=== PATIENT | female | born 1965 | race Caucasian/White ===

== ENCOUNTER 2024-03-03 13:21 | Observation (INO) | payer OTHER, SELFPAY ==
[2024-03-03] VITALS (11 sets, daily range): BP systolic 120–165; BP diastolic 66–78; PULSE 71–106; RESP 14–18; TEMP 36.7–37.1; O2SAT 92–97; BMI 23.3
[2024-03-03] MEDS: Ondansetron 4 MG/2 ML Vial IV ×2 (14:14→23:13)
[2024-03-03] MEDS: Morphine 4 MG/ML Syringe IV (14:14)
--- NOTE | 2024-03-03 14:15 | RAD_ITS ---
EXAM: XR ABDOMEN, 1 VIEW CLINICAL INDICATION: right kidney stone TECHNIQUE: Frontal supine view of the abdomen/pelvis. COMPARISON: No relevant prior studies available. FINDINGS: GASTROINTESTINAL TRACT: Prominent gaseous distention of the large bowel consistent with ileus. ORGANS: 12 mm calcification projects over the central portion of the right kidney. Question of additional 7 mm stone within lower pole of the right kidney. BONES/JOINTS: Prominent disc degeneration noted at the L3-4 level. RAD/Abdomen Single View (Portable) IMPRESSION: 1. Right nephrolithiasis. 2. Large bowel ileus. Electronically Signed: Jean Walsh MD at 15:02 EST ,
[2024-03-03 14:19] LABS: Absolute Lymphocyte Count 0.99 X10^3/uL (0.83-4.51); Absolute Neutrophil Count 6.7 X10^3/uL (2.0-7.7); Basophil# 0.04 X10^3/uL; Basophil% 0.5 % (0-1); Eosinophil# 0.06 X10^3/uL; Eosinophils% 0.7 % (0-5); Hematocrit 40.5 % (37-47); Hemoglobin 13.6 g/dL (12.0-15.0); Lymphocyte # 0.99 X10^3/ul (0.83-4.51); Lymphocyte % 11.7 % (19-41); Mean Corp Hgb Conc 33.6 g/dL (32-36); Mean Corpuscular Hgb 32.2 pg (27.0-32.0); Mean Corpuscular Volume 95.7 fL (81-99); Mean Platelet Vol. 11.6 fl (6.2-12.0); Monocyte# 0.66 X10^3/uL; Monocyte% 7.8 % (0-10); NRBC Flagged by Analyzer 0 % (0-5); Neutrophil # 6.65 X10^3/uL (2.7-7.7); Neutrophil % 78.8 % (47-70); Platelet Count 212 K/mm3 (150-450); RBC Distribution Width CV 12.9 % (11.6-14.6); RBC Distribution Width SD 45.6 fl (35.1-43.9); Red Blood Count 4.23 M/mm3 (4.2-5.4); White Blood Count 8.4 K/mm3 (4.4-11.0)
--- NOTE | 2024-03-03 14:28 | EDS_ITS ---
HPI History of Present Illness Chief Complaint: Flank Pain Informant: patient and family Narrative Narrative: Obstructive kidney stone. Patient started with right flank pain this past Friday pain in the abdomen with nausea and vomiting. Denies urinary symptoms. Initially seen at [facility] on Friday diagnosed with UTI placed on Keflex 4 times daily. She has had temp of 100. Waxing waning pain contact her PCP referred her to the ED yesterday to rule out kidney stone. She is seen at outside hospital in [place], diagnosed with a 9 mm UPJ stone with hydronephrosis. Family reported she was treated with Toradol Zofran. Reported urology was contacted locally here yesterday for follow-up. Pain has increased. Last dose of Toradol 10 AM. Denies any allergies. Denies any past medical history. She ate small bites of food at 11 AM. Today noted blood in her urine. Denies any history of obstructive kidney stones in the past, she states when she is being evaluated to be a kidney donor she was found to have nephrolithiasis. Prior similar symptoms: No PFSH PFSH Home Medications ?Medication ?Instructions ?Recorded ?Last Taken ?Type NK 03/03/24 Unknown History cephalexin 500 mg capsule 500 mg PO TID #15 caps 03/03/24 Unknown Rx docusate sodium 100 mg capsule 100 mg PO BID #20 caps 03/03/24 Unknown Rx (Colace) oxycodone 5 mg tablet 5 mg PO Q6H PRN pain 7 days #14 03/03/24 Unknown Rx tabs Allergy/AdvReac Type Severity Reaction Status Date / Time No Known Allergies Allergy Verified 03/03/24 13:26 Social History Smoking Status: Never smoker ROS ROS ED Constitutional Constitutional ED: Reports fever(s); Denies chills or sweats Eyes Eyes: Denies change in vision ENT ENT ED: Denies dysphagia or sore throat Cardiovascular Cardiovascular: Denies chest pain, leg edema, palpitations or racing heartbeat Respiratory/Chest Respiratory/Chest: Denies cough, dyspnea or dyspnea on exertion Gastrointestinal Gastrointestinal: Reports nausea; Denies abdominal pain, diarrhea or vomiting Genitourinary Genitourinary ED: Reports hematuria; Denies dysuria or urinary frequency Musculoskeletal Musculoskeletal: Reports back pain; Denies extremity pain or neck pain Integumentary Denies rash or wounds Neurologic Neurologic: Denies headache(s), paresthesias or weakness EXAM Physical Exam Const Vital Signs: 03/03/24 13:22 03/03/24 13:26 03/03/24 14:46 Temperature 98.2 F 98.2 F 98.2 F Temperature Source Oral Oral Pulse Rate 87 87 72 Respiratory Rate 18 18 18 Blood Pressure 165/78 H 165/78 H 132/66 H Blood Pressure Mean 107 107 88 Pulse Ox 97 97 96 Oxygen Delivery Method Room Air Room Air 03/03/24 15:02 Temperature 98.2 F Temperature Source Pulse Rate 72 Respiratory Rate 18 Blood Pressure 132/66 H Blood Pressure Mean Pulse Ox 96 Oxygen Delivery Method Positive well nourished and well developed Constitutional Narrative: Nontoxic General Appearance ED: well developed HEENT Reports moist mucous membranes normocephalic and atraumatic Eyes EOMs intact bilaterally and conjunctivae normal General Eye ED: Yes normal appearance of both eyes Neck no lymphadenopathy and supple General: Negative for tenderness Chest Wall Chest: Negative for tenderness Resp normal respiratory effort and normal air movement Effort and Inspection: symmetric chest movement; Negative for respiratory distress Cardio regular rate, regular rhythm and no murmurs Peripheral Pulses: pulses 2+ throughout GI normal to inspection, nondistended, normoactive bowel sounds and non-tender Palpation: Negative for guarding or rebound tenderness present Back/Spine no CVA tenderness and no thoracic nor lumbar tenderness Back/Spine Narrative: No rash. Extremity normal to inspection General Extremety ED: Negative for edema or tenderness General Extremity: Negative for edema Neuro oriented x3 and no sensory deficits noted Sensorium / Orientation: awake and alert Skin no rashes or lesions noted and no wounds MDM MDM MDM Narrative Medical decision making narrative: Interventions / MDM: Differential diagnosis: Obstructive uropathy, hematuria, acute renal insufficiency, ileus Diagnosis considered but do not suspect: N/A My EKG interpretation: N/A Imaging independently reviewed and interpreted by myself: KUB: bowel gas, calcification noted right renal pelvis region. Per radiology large bowel ileus. External documents reviewed: N/A Test considered but not ordered:N/A ED course: Patient CT imagings were reviewed from daughter's phone with report 9 mm UPJ stone that is obstructive. Laboratory studies ordered recheck urine. Morphine Zofran for symptom control. KUB. Will discuss with urology service. 1435: We did receive a call from urologist Dr. De La Fuente who was aware of the patient. Preparations being made to take her to the OR for stent placement. Her pain is much more controlled at this time. Labs white count 8.4 creatinine 1.84, on patient's phone her creatinine was 1.[address] De La Fuente did come to the ED, reviewed imagings discussed possible ileus. She is taken to the OR for ureteral stent. Per radiology read concerns for large bowel ileus. Re-evaluation: stable Disposition discussed with patient/family/significant other: Patient and family Case discussed with consulting clinician: Urology service This note was generated with [employer] dictation software. It may contain incorrect words, spelling, and punctuation that were not noted in checking the note before signing. Lab Data Attestation: I reviewed the patient's lab results. Labs: Laboratory Results - last 24 hr 03/03/24 13:33 WBC 8.4 RBC 4.23 Hgb 13.6 Hct 40.5 MCV 95.7 MCH 32.2 H MCHC 33.6 RDW Std Deviation 45.6 H RDW Coeff of Cassius 12.9 Plt Count 212 MPV 11.6 Immature Gran % (Auto) 0.500 Neut % (Auto) 78.8 H Lymph % (Auto) 11.7 L [place] % (Auto) 7.8 Eos % (Auto) 0.7 Baso % (Auto) 0.5 Absolute Neuts (auto) 6.7 Absolute Lymphs (auto) 0.99 Nucleated RBC % 0 Sodium 137 Potassium 3.3 L Chloride 102 Carbon Dioxide 26.0 Anion Gap 8 BUN 22 H Creatinine 1.84 H Estim Creat Clear Calc 25.72 Est GFR (MDRD) Af Amer 36 L Est GFR (MDRD) Non-Af 30 L BUN/Creatinine Ratio 12.0 Glucose 109 H Calcium 9.2 Radiography Diagnostic Testing: Clinical Impression(s) from Imaging Studies KUB X-Ray 03/03/24 14:15 IMPRESSION: 1. Right nephrolithiasis. 2. Large bowel ileus. Electronically Signed: Jean Walsh MD at 15:02 EST , Discharge Plan Dx/Rx/DC Orders Clinical Impression: Renal colic on right side, Obstructed, uropathy, Renal insufficiency, Ileus Disposition Disposition: Acute Care Hospital [facility] Discharge Date/Time: 03/03/24 15:00
[2024-03-03 14:32] LABS: Anion Gap 8 (5-15); BUN 22 mg/dL (7-18); Calcium,Total 9.2 mg/dL (8.5-10.1); Chloride 102 mmol/L (98-107); Creatinine, Serum 1.84 mg/dL (0.55-1.02); EST Glomerular Filtration Rate 30 mL/min (>60); Est Glom Filt Rate - Afr Amer 36 mL/min (>60); Estimated Creatinine Clearance 25.72 ml/min; Glucose 109 mg/dL (74-106); Potassium 3.3 mmol/L (3.5-5.1); Sodium Level 137 mmol/L (136-145)
--- NOTE | 2024-03-03 14:52 | PCM.HP.STD ---
HPI - General General Date of Service: 03/03/24 Chief Complaint: left kidney stone HPI Narrative BART PIERSON, is a 58 F who presents to ER with severe pain from left obstruction kidney stone plan to take to surgery now for a stent and admit for pain control PFSH Home Medications ?Medication ?Instructions ?Recorded ?Last Taken ?Type NK 03/03/24 Unknown History Allergy/AdvReac Type Severity Reaction Status Date / Time No Known Allergies Allergy Verified 03/03/24 13:26 Social History Smoking Status: Never smoker ROS Constitutional Constitutional: Denies chills, fever(s) or malaise Eyes Eyes: Denies blurry vision or change in vision ENT HEENT: Reports none Cardiovascular Cardiovascular: Denies chest pain or palpitations Respiratory/Chest Respiratory/Chest: Denies cough or shortness of breath with exertion Gastrointestinal Gastrointestinal: Denies abdominal pain, constipation or diarrhea Musculoskeletal Musculoskeletal: Denies back pain, joint stiffness or joint swelling Integumentary Integumentary: Denies dry skin, jaundice, lesions or rash Neurologic Neurologic: Denies confusion, syncope or weakness Psychiatric Psychiatric: Reports none; Denies anxiety or depression Endocrine Endocrinology: Denies excessive sweating, fatigue or flushing Hematologic/Lymphatic Hematologic/Lymphatic: Denies anemia, easy bleeding or easy bruising Vital Signs Vital Signs Vital Signs: 03/03/24 13:22 03/03/24 13:26 03/03/24 14:46 Temperature 98.2 F 98.2 F 98.2 F Temperature Source Oral Oral Pulse Rate 87 87 72 Respiratory Rate 18 18 18 Blood Pressure 165/78 H 165/78 H 132/66 H Blood Pressure Mean 107 107 88 Pulse Ox 97 97 96 Oxygen Delivery Method Room Air Room Air Weight Weight: 58.06 kg Body Mass Index (BMI) 23.3 Physical Exam Const alert and oriented x3 General Appearance: cooperative HEENT normocephalic and head/scalp atraumatic Eyes PERRL and EOMs intact bilaterally Neck supple, no JVD and no carotid bruits Resp normal respiratory effort, normal air movement and clear to auscultation bilaterally Cardio regular rate and no murmurs GI normal to inspection, nondistended, normoactive bowel sounds and soft to palpation Extremity normal capillary refill General Extremity: no tenderness to palpation of joints or extremities; Negative for edema Skin no rashes or lesions noted and no wounds General Skin Exam: no breakdown Neuro CN's II-XII intact bilaterally Psych affect normal Appearance: appropriate Results Medical Records Data Attestation: I reviewed the patient's medical records Lab / Micro Data Attestation: I reviewed the patient's lab results. 03/03/24 13:33 03/03/24 13:33 Labs: Laboratory Results - last 24 hr 03/03/24 13:33: WBC 8.4, RBC 4.23, Hgb 13.6, Hct 40.5, MCV 95.7, MCH 32.2 H, MCHC 33.6, RDW Std Deviation 45.6 H, RDW Coeff of Cassius 12.9, Plt Count 212, MPV 11.6, Immature Gran % (Auto) 0.500, Neut % (Auto) 78.8 H, Lymph % (Auto) 11.7 L, [place] % (Auto) 7.8, Eos % (Auto) 0.7, Baso % (Auto) 0.5, Absolute Neuts (auto) 6.7, Absolute Lymphs (auto) 0.99, Nucleated RBC % 0, Sodium 137, Potassium 3.3 L, Chloride 102, Carbon Dioxide 26.0, Anion Gap 8, BUN 22 H, Creatinine 1.84 H, Estim Creat Clear Calc 25.72, Est GFR (MDRD) Af Amer 36 L, Est GFR (MDRD) Non-Af 30 L, BUN/Creatinine Ratio 12.0, Glucose 109 H, Calcium 9.2 Assessment & Plan Assessment/Plan (1) Calculus of left kidney: PLAN: plan for left stent now admit .
--- NOTE | 2024-03-03 14:57 | PCM.DC ---
Discharge Instructions Diet Discharge Diet: No restrictions DC O2, CPAP, BIPAP needs Additional Home O2 Discharge instructions: No Dressing / Incision Discharge Activity: Return to Normal Activity and May Not Drive (while taking narcotic pain medications.) Dressing / Incision Call your doctor if you observe: Fever of 101 or Higher Follow Up Care Please Follow Up With: Ryan De La Fuente MD When: Call [phone] for an appointment Test Results: Test results from this visit will be discussed in further detail at your follow-up appointment, if applicable. Discharge Plan Admission Primary Reason for Your Visit: kidney stone Attending Provider: Ryan De La Fuente Primary Care Provider: Desmond Gould Instructions Print Language: Italian Discharge Orders/Prescriptions Prescriptions: New cephalexin 500 mg capsule 500 mg PO TID Qty: 15 0RF oxycodone 5 mg tablet 5 mg PO Q6H PRN (Reason: pain) 7 Days Qty: 14 0RF docusate sodium [Colace] 100 mg capsule 100 mg PO BID Qty: 20 0RF No Action NK Referrals / Follow Up: Desmond Gould MD [Primary Care Provider] - Ryan De La Fuente MD [Med Staff - Active Staff] - Disposition Disposition (needs filled in before D/C Order can be placed): Home, Self Care
--- NOTE | 2024-03-03 15:02 | PCM.PRE.AN2 ---
ASA Classification* ASA Classification ASA Classification: 2 and E Assessment & Plan Anesthesia* Anesthesia Assessment Anesthesia Assessment: Discussed sedation and/or anesthesia options, risks, benefits, and alternatives with patient/parents/legal guardian/POA. Questions invited. The patient/parents/legal guardian/POA seems to understand and agrees to proceed with anesthesia plan. Reviewed the physical assessment, medical history, allergy history and patient home medications list prior to surgery/procedure/anesthetic and documented any changes. Performed airway and anesthesia risk assessments. Anesthesia Type Anesthesia Type: MAC (Food 11 am) Anesthesia Focused Assessment* Temperature: 98.2 F Pulse Rate: 72 Blood Pressure: 132/66 Respiratory Rate: 18 Pulse Ox: 96 Airway Assessment Mouth opens: >3 cm Mallampati Score: II Focused Labs Anesthesia Preop lab: CBC WBC 8.4 K/mm3 (4.4-11.0) 03/03/24 13:33 RBC 4.23 M/mm3 (4.2-5.4) 03/03/24 13:33 Hgb 13.6 g/dL (12.0-15.0) 03/03/24 13:33 Hct 40.5 % (37-47) 03/03/24 13:33 Plt Count 212 K/mm3 (150-450) 03/03/24 13:33 CHEMISTRY Potassium 3.3 mmol/L (3.5-5.1) L 03/03/24 13:33 Sodium 137 mmol/L (136-145) 03/03/24 13:33 BUN 22 mg/dL (7-18) H 03/03/24 13:33 Creatinine 1.84 mg/dL (0.55-1.02) H 03/03/24 13:33 Glucose 109 mg/dL (74-106) H 03/03/24 13:33 COAG Pre-Assessment Diagnosis/Proposed Procedure Planned Operative Procedure(s): Cysto, Stent placement Anesthesia History Anesthesia History - senior clinical consultant: Anesthesia History - senior clinical consultant Hx Hospitalization Any Problems With Anesthesia Cholinesterase deficiency You/Your Family Experience fever (hyperthermia) with Relationship Recent Exposure to Contagious Disease Does patient have nerve stimulator Patient instructed to have device shut off --Does patient have Pacemaker or ICD? When Was Last Pacemaker Check QUESTION #4 FULL TEXT: You/Your Family Experience fever (hyperthermia) with Anesthesia Last Oral Intake Last Oral intake: Last Oral Intake NPO since Meds taken in AM with sips of water? Meds patient instructed to take am of surgery PONV PONV - senior clinical consultant: PONV - senior clinical consultant Female HX of Motion Sickness HX of N/V After Surgery Non-Smoker Duration of Surgery greater than 60 minutes Number of Risk Factors PONV Score Height & Weight Height & Weight: Anesthesia: Height & Weight Height 5 ft 2 in 03/03/24 13:22 Weight: 58.06 kg 03/03/24 13:22 Body Mass Index (BMI) 23.3 03/03/24 13:22 Respiratory Assessment Respiratory Assessment - senior clinical consultant: Respiratory Tract Infection Hx - senior clinical consultant Hx Respiratory Tract Infection STOP Sleep Apnea STOP Sleep Apnea - senior clinical consultant: STOP Sleep Apnea - senior clinical consultant Hx Hypertension Hx Sleep Apnea CPAP BIPAP Do you snore loudly (louder than talking or can be heard Do you often feel tired/ fatigued/ sleepy during daytime? Has anyone observed you stop breathing during sleep? STOP Results QUESTION #5 FULL TEXT : Do you snore loudly (louder than talking or can be heard through closed doors)? 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 Specify any problems Hx of Preganancy in last 3 Months Nurse Filling Out Transfusion & Questions: Date: Time: Patient unable to answer at this time (ie. confused, unrespo /Reproduction History /Reproductive History - senior clinical consultant: /Reproductive Hx- senior clinical consultant Hx Now Gestational Age (in weeks): EDC: Hx Hx Para Hx Section SAB Active Medications Active Medications: Current Medications Generic Name Dose Route Start Last Admin Trade Name Freq PRN Reason Stop Dose Admin Acetaminophen 650 mg 03/03/24 14:57 Acetaminophen 325 Mg Tablet PO Q6H PRN PRN Pain Score 1-10 Al Hydroxide/Mg Hydroxide 30 ml 03/03/24 15:00 Mag Hydrox/Al Hydrox/Simeth 30 Ml Udc PO DAILY CARLOS Docusate Sodium 200 mg 03/03/24 15:00 Docusate Sodium 100 Mg Capsule PO BID CARLOS Cefazolin Sodium 1 gm in 50 mls @ 150 mls/hr 03/03/24 15:00 IV 03/03/24 22:19 Q8 CARLOS Ketorolac Tromethamine 15 mg 03/03/24 14:57 Ketorolac 15 Mg/Ml Vial IV 03/05/24 14:57 Q6H PRN PRN Pain Score 1-10 Metoclopramide HCl 10 mg 03/03/24 14:57 Metoclopramide 10 Mg/2 Ml Vial IV Q8H PRN PRN NAUSEA/VOMITING Ondansetron HCl 4 mg 03/03/24 14:57 Ondansetron 4 Mg/2 Ml Vial IV Q8H PRN NAUSEA/VOMITING Oxycodone HCl 5 - 10 mg 03/03/24 14:57 Oxycodone 5 Mg Tablet PO Q6H PRN PRN Pain Score 4-10 PFSH Home Medications ?Medication ?Instructions ?Recorded ?Last Taken ?Type NK 03/03/24 Unknown History cephalexin 500 mg capsule 500 mg PO TID #15 caps 03/03/24 Unknown Rx docusate sodium 100 mg capsule 100 mg PO BID #20 caps 03/03/24 Unknown Rx (Colace) oxycodone 5 mg tablet 5 mg PO Q6H PRN pain 7 days #14 03/03/24 Unknown Rx tabs Allergy/AdvReac Type Severity Reaction Status Date / Time No Known Allergies Allergy Verified 03/03/24 13:26 Social History Smoking Status: Never smoker Review of Systems (Anesthesia) ROS Narrative System reviewed and no additional complaints, except as documented.
[2024-03-03] MEDS: Cefazolin 2 GM in Syringe IV (15:12)
[2024-03-03] MEDS: Lidocaine Jelly 2% 20 ML Syringe (URO-JET) 1 APPLIC (15:22)
--- NOTE | 2024-03-03 15:31 | OP.PCM_ITS ---
Operative Report (Standard) Operative Information Surgery/Procedure Performed: Cystoscopy retrograde and right stent Surgeon: Ryan De La Fuente Date of Procedure: 03/03/24 Procedure Start Time: 15:22 Procedure Stop Time: 15:31 Pre-Operative Diagnosis: Obstructing right ureteral calculus Post-Operative Diagnosis: The same Select all DRAINS/GRAFTS/IMPLANTS that apply: Drains Drain details: Right stent 6 x 26 Type of Anesthesia: General Estimated Blood Loss: None Specimen collected: No Description of surgery: Patient was taken back to the operating room after smooth induction of a MAC local she was placed in dorsolithotomy position. The urethrovaginal area prepped draped in usual sterile fashion within the bladder with a 21 [place] rigid cystourethroscope used a wire and advanced a wire up the ureter could see a stone that was in the proximal ureter and then I was able to go wire past the stone and then I try to get a Pollick catheter passed a stone was really difficult I backed out the Pollick catheter and then I advanced a wire further up and then coiled in the kidney and then over the wire advanced a stent it was a 6 [place] by 26 cm stent fortunately was able to get the stent past the stone and then once a stone was then passed then I get the stent in stent coil in the kidney bladder good position patient bladder was drained anesthetic was reversed and she be admitted for observation overnight. Surgical Findings: Stone in the proximal right ureter causing obstruction Director Of Sustainability Programs residential designer: No Complications Complications: No Admit VTE Documentation VTE Present on Admission: No VTE Mechan Device Prophylaxis: SCD's VTE Pharm Prophylaxis ordered?: No
--- NOTE | 2024-03-03 15:40 | PCM.POST.ANE ---
Anesthesia: Postop Eval I Current Vital Signs Temperature: 98.1 F Pulse Rate: 106 Blood Pressure: 124/66 Respiratory Rate: 16 Pulse Ox: 93 Oxygen Delivery Method: Room Air Assessment Airway patent: Yes Spontaneous unlabored respirations: Yes Mental status: Awake and Calm nausea: No Vomiting: No Anesthesia Complication: No Fluid Hydration Crystalloid volume administer (ml): 10 Total IV fluid infused: 10 Progress Note Anesthesia document: Postop Eval 1 completed: Yes
[2024-03-03] MEDS: Bisacodyl 5 MG Tablet 10 MG PO (16:41)
[2024-03-03] MEDS: Mag Hydrox/Al Hydrox/Simeth 30 ML UDC PO (16:41)
[2024-03-03] MEDS: Docusate Sodium 100 MG Capsule 200 MG PO (16:41)
--- NOTE | 2024-03-03 16:54 | POSTOPAN2_ITS ---
Anesthesia Postop Eval I Sum Postop Eval Completion status Anesthesia document: Postop Eval 1 completed: Yes Anesthesia Postop Eval I Summary Anesthesia Postop Eval I Summary: Anesthesia Postop Eval I: Assessment Summary Airway patent Yes 03/03/24 15:41 OIL WELL PERFORATOR OPERATOR.[email or web address] Spontaneous unlabored Yes 03/03/24 15:41 OIL WELL PERFORATOR OPERATOR.[email or web address] respirations Mental status Awake,Calm 03/03/24 15:41 OIL WELL PERFORATOR OPERATOR.[email or web address] nausea No 03/03/24 15:41 OIL WELL PERFORATOR OPERATOR.GDOTT Vomiting No 03/03/24 15:41 OIL WELL PERFORATOR OPERATOR.GDOTT Anesthesia Postop Eval I: Fluid Summary Crystalloid volume administer 10 03/03/24 15:41 OIL WELL PERFORATOR OPERATOR.GDOTT (ml) Colloids volume administered ( ml) Blood Product volume administered (ml) Total IV fluid infused 10 03/03/24 15:41 OIL WELL PERFORATOR OPERATOR.GDOTT Anesthesia Postop Eval I: Summary Notes Anesthesia Complication No 03/03/24 15:41 OIL WELL PERFORATOR OPERATOR.GDOTT Anesthesia Complication Comment: Post-operative progress note Anesthesia: Postop Eval II Evaluation Mental status: Awake Pain Level: 2 nausea: No Vomiting: No
--- NOTE | 2024-03-03 16:54 | PCM.POSTANE2 ---
Anesthesia Postop Eval I Sum Postop Eval Completion status Anesthesia document: Postop Eval 1 completed: Yes Anesthesia Postop Eval I Summary Anesthesia Postop Eval I Summary: Anesthesia Postop Eval I: Assessment Summary Airway patent Yes 03/03/24 15:41 INSULATION BOARD CALENDER OPERATOR.[email or web address] Spontaneous unlabored Yes 03/03/24 15:41 INSULATION BOARD CALENDER OPERATOR.GDOTT respirations Mental status Awake,Calm 03/03/24 15:41 INSULATION BOARD CALENDER OPERATOR.GDOTT nausea No 03/03/24 15:41 INSULATION BOARD CALENDER OPERATOR.GDOTT Vomiting No 03/03/24 15:41 INSULATION BOARD CALENDER OPERATOR.GDOTT Anesthesia Postop Eval I: Fluid Summary Crystalloid volume administer 10 03/03/24 15:41 INSULATION BOARD CALENDER OPERATOR.GDOTT (ml) Colloids volume administered ( ml) Blood Product volume administered (ml) Total IV fluid infused 10 03/03/24 15:41 INSULATION BOARD CALENDER OPERATOR.GDOTT Anesthesia Postop Eval I: Summary Notes Anesthesia Complication No 03/03/24 15:41 INSULATION BOARD CALENDER OPERATOR.GDOTT Anesthesia Complication Comment: Post-operative progress note Anesthesia: Postop Eval II Evaluation Mental status: Awake Pain Level: 2 nausea: No Vomiting: No
[2024-03-03] MEDS: Ketorolac 15 MG/ML Vial IV (21:47)
[2024-03-03] MEDS: Acetaminophen 325 MG Tablet 650 MG PO (23:09)
[2024-03-03] MEDS: Cefazolin 1 GM/50 ML BAG IV (23:15)
[2024-03-04 04:07] VITALS: BP 141/71; PULSE 86; RESP 16; TEMP 36.8; O2SAT 96
[2024-03-04] MEDS: Ketorolac 15 MG/ML Vial IV ×2 (04:10→21:05)
[2024-03-04 04:28] LABS: Mucous, Urine 0 SEEN /hpf (<or=2+)
[2024-03-04 04:29] LABS: Color, Urine Amber (Yellow); Glucose, Dipstick Normal (Normal); Ketone-Dipstick 50 mg/dl (Negative); Leukocyte Esterase-Dipstick 500 /ul (Negative); Nitrite-Dipstick Negative (Negative); Occult Blood-Urine 250 /ul (Negative); Protein-Dipstick 100 mg/dl (Negative); Specific Gravity, Urine 1.025 (1.002-1.030); Urine Bilirubin Dipstick Negative (Negative); Urine Clarity Sl. Cloudy (Clear); Urine Urobilinogen Normal (Normal)
[2024-03-04 04:37] LABS: Bacteria 1+ /hpf (None Seen); Red Blood Cells-Urine 25-50 SEEN /hpf (0-5); Squamous Epithelial Cells - UA 5-10 SEEN /hpf (5-10); White Blood Cells 25-50 SEEN /hpf (0-5)
[2024-03-04 04:38] LABS: Amorphous Sediment 4+
[2024-03-04] MEDS: Cefazolin 1 GM/50 ML BAG IV ×2 (06:17→18:20)
[2024-03-04] MEDS: Acetaminophen 325 MG Tablet 650 MG PO (06:24)
[2024-03-04] MEDS: Ondansetron 4 MG/2 ML Vial IV ×2 (06:52→14:40)
--- NOTE | 2024-03-04 07:50 | PN.URO_ITS ---
Subjective Subjective Status post stent on the right side for obstructing stone, will give her suppository this morning to help her move her bowels she has not had a bowel movement still has a lot of gas distention in the abdomen. She can go home later this morning. No fevers no chills no signs of infection she was given instructions to go home with some antibiotics stool softeners and pain medicine as needed. Objective Data Objective Data Vital Signs: Vital Signs Temp Pulse Resp BP Pulse Ox O2 Del Method 98.3 F 86 16 141/71 H 96 Room Air 03/04/24 04:07 03/04/24 04:07 03/04/24 04:07 03/04/24 04:07 03/04/24 04:07 03/04/24 04:07 Oxygen Delivery Method Room Air Weight: 58.06 kg Body Mass Index (BMI) 23.3 Intake & Output: Intake and Output for Last 24 Hours 03/02/24 03/03/24 03/04/24 23:59 23:59 23:59 Intake Total 690 / 690 450 / 450 Balance 690 / 690 450 / 450 Lab / Micro Data 03/03/24 13:33 03/03/24 13:33 Labs: Laboratory Results - last 24 hr 03/03/24 13:33: WBC 8.4, RBC 4.23, Hgb 13.6, Hct 40.5, MCV 95.7, MCH 32.2 H, MCHC 33.6, RDW Std Deviation 45.6 H, RDW Coeff of Cassius 12.9, Plt Count 212, MPV 11.6, Immature Gran % (Auto) 0.500, Neut % (Auto) 78.8 H, Lymph % (Auto) 11.7 L, [place] % (Auto) 7.8, Eos % (Auto) 0.7, Baso % (Auto) 0.5, Absolute Neuts (auto) 6.7, Absolute Lymphs (auto) 0.99, Nucleated RBC % 0, Sodium 137, Potassium 3.3 L , Chloride 102, Carbon Dioxide 26.0, Anion Gap 8, BUN 22 H, Creatinine 1.84 H, Estim Creat Clear Calc 25.72, Est GFR (MDRD) Af Amer 36 L, Est GFR (MDRD) Non-Af 30 L, BUN/Creatinine Ratio 12.0, Glucose 109 H, Calcium 9.2 03/04/24 04:20: Urine Color [place], Urine Clarity Sl. Cloudy, Urine pH 5.0, Ur Specific [place] 1.025, Urine Protein 100 H, Urine Glucose (UA) Normal, Urine Ketones 50 H, Urine Occult Blood 250 H, Urine Nitrite Negative, Urine Bilirubin Negative, Urine Urobilinogen Normal, Ur Leukocyte Esterase 500 H, Urine RBC 25- 50 SEEN, Urine WBC 25-50 SEEN, Ur Squamous Epith Cells 5-10 SEEN, Amorphous Sediment 4+, Urine Bacteria 1+, Urine Mucus 0 SEEN Radiography Diagnostic Testing: Radiology Impression KUB X-Ray 03/03/24 14:15 IMPRESSION: 1. Right nephrolithiasis. 2. Large bowel ileus. Electronically Signed: Jean Walsh MD at 15:02 EST ,
[2024-03-04 07:55] VITALS: BP 140/71; PULSE 70; RESP 18; TEMP 36.9; O2SAT 96
[2024-03-04] MEDS: Mag Hydrox/Al Hydrox/Simeth 30 ML UDC PO (07:58)
[2024-03-04] MEDS: Docusate Sodium 100 MG Capsule 200 MG PO ×2 (07:59→20:57)
[2024-03-04] MEDS: Bisacodyl 10 MG Suppository RC (08:10)
[2024-03-04 11:29] VITALS: BP 145/75; PULSE 72; RESP 16; TEMP 36.9; O2SAT 94
[2024-03-04 11:33] VITALS: BP 145/75; PULSE 73; RESP 16; TEMP 36.9; O2SAT 97
[2024-03-04 14:28] VITALS: BP 148/77; PULSE 77; RESP 18; TEMP 36.7; O2SAT 95
[2024-03-04] MEDS: 0.9% Saline Lock 10 ML Syringe IV ×2 (14:40→18:20)
[2024-03-04 17:06] LABS: Bedside Glucose 128 mg/dL (74-106)
[2024-03-04 17:18] LABS: Hematocrit 38.8 % (37-47); Hemoglobin 13.2 g/dL (12.0-15.0); Mean Corpuscular Hgb 31.7 pg (27.0-32.0); Mean Corpuscular Volume 93.3 fL (81-99); Mean Platelet Vol. 11.3 fl (6.2-12.0); Platelet Count 234 K/mm3 (150-450); RBC Distribution Width CV 12.8 % (11.6-14.6); RBC Distribution Width SD 43.9 fl (35.1-43.9); Red Blood Count 4.16 M/mm3 (4.2-5.4); White Blood Count 7.6 K/mm3 (4.4-11.0)
[2024-03-04 17:31] LABS: Anion Gap 7 (5-15); BUN 14 mg/dL (7-18); BUN/Creat Ratio 16.6 RATIO (10-20); Calcium,Total 8.9 mg/dL (8.5-10.1); Chloride 101 mmol/L (98-107); Creatinine, Serum 0.84 mg/dL (0.55-1.02); EST Glomerular Filtration Rate 73 mL/min (>60); Est Glom Filt Rate - Afr Amer 88 mL/min (>60); Estimated Creatinine Clearance 56.33 ml/min; Glucose 129 mg/dL (74-106); Potassium 3.6 mmol/L (3.5-5.1); Sodium Level 136 mmol/L (136-145)
[2024-03-04 22:52] VITALS: BP 127/72; PULSE 87; RESP 16; TEMP 37; O2SAT 96
[2024-03-05] MEDS: Cefazolin 1 GM/50 ML BAG IV (05:03)
[2024-03-05 05:05] VITALS: BP 129/68; PULSE 72; RESP 16; TEMP 36.8; O2SAT 94
--- NOTE | 2024-03-05 07:36 | PCM.PN.GU ---
Subjective Subjective pt is feeling much better this am. bowels have moved cm diet. abd soft and benign. Objective Data Objective Data Vital Signs: Vital Signs Temp Pulse Resp BP Pulse Ox O2 Del Method 98.3 F 72 16 129/68 H 94 Room Air 03/05/24 05:05 03/05/24 05:05 03/05/24 05:05 03/05/24 05:05 03/05/24 05:05 03/05/24 05:08 Oxygen Delivery Method Room Air Weight: 58.06 kg Body Mass Index (BMI) 23.3 Intake & Output: Intake and Output for Last 24 Hours 03/03/24 03/04/24 03/05/24 23:59 23:59 23:59 Intake Total 690 / 690 1200 / 1200 50 / 50 Output Total 700 / 700 Balance 690 / 690 500 / 500 50 / 50 Lab / Micro Data 03/04/24 17:10 03/04/24 17:10 Labs: Laboratory Results - last 24 hr 03/04/24 15:40: POC Glucose 128 H 03/04/24 17:10: WBC 7.6, RBC 4.16 L, Hgb 13.2, Hct 38.8, MCV 93.3, MCH 31.7, MCHC 34.0, RDW Std Deviation 43.9, RDW Coeff of Cassius 12.8, Plt Count 234, MPV 11.3, Sodium 136, Potassium 3.6, Chloride 101, Carbon Dioxide 28.0, Anion Gap 7, BUN 14, Creatinine 0.84, Estim Creat Clear Calc 56.33, Est GFR (MDRD) Af Amer 88, Est GFR (MDRD) Non-Af 73, BUN/Creatinine Ratio 16.6, Glucose 129 H, Calcium 8.9
[2024-03-05 07:56] LABS: Hematocrit 37.2 % (37-47); Mean Corp Hgb Conc 32.3 g/dL (32-36); Mean Corpuscular Hgb 30.8 pg (27.0-32.0); Mean Corpuscular Volume 95.4 fL (81-99); Mean Platelet Vol. 11.5 fl (6.2-12.0); Platelet Count 234 K/mm3 (150-450)
[2024-03-05 08:49] VITALS: BP 137/75; PULSE 90; RESP 16; TEMP 36.6; O2SAT 95
[2024-03-05 09:04] LABS: Anion Gap 6 (5-15); BUN 13 mg/dL (7-18); BUN/Creat Ratio 15.1 RATIO (10-20); Chloride 103 mmol/L (98-107); Creatinine, Serum 0.86 mg/dL (0.55-1.02); EST Glomerular Filtration Rate 71 mL/min (>60); Est Glom Filt Rate - Afr Amer 86 mL/min (>60); Estimated Creatinine Clearance 55.02 ml/min; Glucose 91 mg/dL (74-106); Potassium 3.6 mmol/L (3.5-5.1); Sodium Level 138 mmol/L (136-145)
== END 2024-03-05 09:47 | disposition home or self-care (01) ==
LOC: ED 14:22 → SDC 14:46 → ACINP 14:47 → SDC 15:38 → MS3 15:38
PROVIDERS: Admitting Provider Urology; Emergency Provider Emergency Medicine; PCP Family Medicine; Visit Provider Urology
PROC: (CPT 52332; principal; 2024-03-03 17:15)
DX: N13.2 Hydronephrosis with renal and ureteral calculous obstruction (principal); K56.7 Ileus, unspecified
CPT/HCPCS: 52332; 00910; 36415; 74018; 76000; 80048; 81001; 82962; 85025; 85027; 93005; 96365; 96366; 96375; 96376; 99221; 99284; A4216; C1769; C2617; G0378; J2405

== ENCOUNTER → 2024-03-09 | Outpatient (CLI) | payer OTHER, SELFPAY | END | disposition home or self-care (01) | LOC: LABSPEC 16:13 | PROVIDERS: PCP Family Medicine; Referring Provider Urology; Visit Provider Urology | DX: R30.0 Dysuria (principal) | CPT/HCPCS: 87086 ==

== ENCOUNTER → 2024-03-19 | Outpatient (CLI) | payer OTHER, SELFPAY ==
--- NOTE | 2024-03-19 | CALC_PTH ---
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 Ryan De La Fuente MD : [id number] BED: DIS: 03/19/2024 SPEC #: [id number] RECD: 03/23/24 10:57 STATUS: RUBÉN NICHOLAS #: [id number] MICHAEL: 03/19/24 00:[address]: Ryan De La Fuente DEPT: SURGICAL PATHOLOGY RECD BY: Sylvie Rios ENTERED: 03/23/24 11:01 SP TYPE: Calculi OTHR DR: Dr. Desmond Gould MD Tissues: CALCULI Procedures: Surgery Specimen Level I HEADER OPERATION: Calculi removal PRE-OP DIAGNOSIS: Calculus of kidney TISSUE SUBMITTED: Calculi GROSS DIAGNOSIS Fragments of stone, clinically right ureteral calculi (gross only). See armin. 03/23/2024 COMMENT The specimen is submitted in its entirety for chemical stone analysis. The results from this study will be reported separately. GROSS DESCRIPTION Received without fixative labeled with the patient's name and designated right ureteral calculi. The specimen consists of two fragments of brownish-black stone measuring in aggregate 0.4 x 0.3 x 0.1 cm. The entire specimen is submitted for stone analysis. The specimen is for gross identification only. 03/23/2024 CPT: 12145
[2024-03-29 18:07] LABS: Ca Oxalate, Dihydrate 30 % (.); Ca Oxalate, Monohydrate 70 % (.); Size 5x3 mm (.)
== END | disposition home or self-care (01) ==
PROVIDERS: PCP Family Medicine; Referring Provider Urology; Visit Provider Urology
DX: N20.0 Calculus of kidney (principal)
CPT/HCPCS: 82360; 88300